=== PATIENT | female | born 1970 | race Two or more races ===

== ENCOUNTER → 2017-07-17 | Outpatient (REF) | payer OTHER, MEDICAID ==
[2017-07-17 16:03] LABS: ANION GAP 7 MEQ/L (8-16); BLOOD UREA NITROGEN 13 MG/DL (7-18); CARBON DIOXIDE LEVEL 31 MEQ/L (21-32); CHLORIDE LEVEL 100 MEQ/L (98-107); CREATININE FOR GFR 1.21 MG/DL (0.55-1.30); GLUCOSE, FASTING 87 MG/DL (70-100); SODIUM LEVEL 138 MEQ/L (136-145)
== END ==
LOC: M SFHCLACO 11:08
DX: R60.9 Edema, unspecified (principal); E03.9 Hypothyroidism, unspecified